=== PATIENT | male | born 1995 | race Caucasian/White ===

== ENCOUNTER 2023-04-19 09:13 | Emergency (ER) | payer OTHER ==
[~2023-04-19] VITALS: Ht 182.9 cm; Wt 83.9 kg
--- NOTE | 2023-04-19 09:23 | NUR ---
BIBS C/O THROAT BLEEDING THIS AM S/P SNEEZING. TONSILECTOMY 2 WEEKS AGO. BLEEDING STOPPED ON ARRIVAL.
--- NOTE | 2023-04-19 09:30 | NUR ---
AT BEDSIDE FOR EVAL
--- NOTE | 2023-04-19 10:05 | NUR ---
Patient discharged to home in stable condition. Written and verbal after care instructions given. Patient verbalizes understanding of instruction.
[2023-04-19 10:11] VITALS: BP 138/62
== END 2023-04-19 10:05 | disposition home or self-care (01) ==
LOC: ER 09:26
DX: J95.830 Postprocedural hemorrhage of a respiratory system organ or structure following a respiratory system procedure (principal)